=== PATIENT | female | born 2000 | race Caucasian/White ===

== ENCOUNTER 2021-03-17 12:19 | Emergency (ER) | payer MEDICAID ==
[~2021-03-17] VITALS: Ht 172.7 cm; Wt 77.0 kg
[2021-03-17 14:38] LABS: BASOPHILS % (AUTO) 0 % (0-1); EOSINOPHILS % (AUTO) 2 % (1-7); LYMPHOCYTES % (AUTO) 16 % (22-44); MD NO; MEAN CORPUSCULAR HEMOGLOBIN 33.2 pg (27.0-34.8); MEAN PLATELET VOLUME 7.5 fL (7.4-10.4); MONOCYTES % (AUTO) 5 % (2-9); NEUTROPHILS % (AUTO) 77 % (42-75); PLATELET COUNT 266 x10^3/uL (130-400); RED BLOOD COUNT 3.75 x10^6/uL (3.82-5.3); RED CELL DISTRIBUTION WIDTH 13.1 % (9.6-15.2)
[2021-03-17 14:50] LABS: ALBUMIN 3.6 g/dL (3.4-5.0); ANION GAP 5 mmol/L (5-15); CALCIUM 8.9 mg/dL (8.5-10.1); CHLORIDE 109 mmol/L (98-107)
--- NOTE | 2021-03-17 16:38 | NUR ---
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
--- NOTE | 2021-03-17 17:05 | NUR ---
LMP 11/12 HERE FOR CHECK UP. PT DENIES VB. PT WITH STEADY GAIT TO BATHROOM. BOYFRIEND AT BEDSIDE. ATTACHED TO MONITOR. VSS. TURNER.
[2021-03-17 17:54] LABS: MICROSCOPIC INDICATED
[2021-03-17 18:08] VITALS: BP 107/51
== END 2021-03-17 18:10 | disposition home or self-care (01) ==
LOC: ED 14:47
DX: O26.891 Other specified pregnancy related conditions, first trimester (principal); R10.30 Lower abdominal pain, unspecified; Z3A.01 Less than 8 weeks gestation of pregnancy
CPT/HCPCS: 36415; 76815; 80048; 81001; 82040; 84703; 85025; 86901; 87086; 99284